=== PATIENT | male | born 1985 | race Caucasian/White ===

== ENCOUNTER 2021-04-28 17:28 | Emergency (ER) | payer OTHER, SELFPAY ==
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
[2021-04-28 17:31] VITALS: BP 178/91; PULSE 83; RESP 16; TEMP 36.3; O2SAT 100
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
[2021-04-28] MEDS: TETANUS,DIPHTHERIA,AC PERTUSSIS ADULT (0.5 ML) BOOSTRIX IM (18:42)
[2021-04-28 18:51] VITALS: BP 120/80; PULSE 80; RESP 18; O2SAT 98
== END 2021-04-28 18:53 | disposition home or self-care (01) ==
PROVIDERS: Emergency Provider Nurse Practitioner Family; PCP Family Medicine
DX: S00.85XA Superficial foreign body of other part of head, initial encounter (principal); Z23 Encounter for immunization; W34.09XA Accidental discharge from other specified firearms, initial encounter
CPT/HCPCS: 10120; 70110; 90471; 90715; 99283